=== PATIENT | female | born 1975 | race Hispanic/Latino ===

== ENCOUNTER 2021-09-19 01:11 | Emergency (ER) | payer OTHER ==
[~2021-09-19] VITALS: Ht 154.9 cm; Wt 81.6 kg
[2021-09-19 02:16] VITALS: BP 118/53
== END 2021-09-19 02:20 | disposition left against medical advice (07) ==
LOC: EDH 01:11
DX: L50.9 Urticaria, unspecified (principal); Z53.21 Procedure and treatment not carried out due to patient leaving prior to being seen by health care provider